=== PATIENT | male | born 1955 | race Caucasian/White ===

== ENCOUNTER → 2019-02-19 | Outpatient (CLI) | payer BC ==
[~2019-02-19] MED LIST: REGADENOSON 0.4 MG/5 ML SYRINGE IV ONE
--- NOTE | 2019-02-19 11:56 | NM ---
EXAMINATION TYPE: NM stress cardiolite complete DATE OF EXAM: 02/19/2019 COMPARISON: NONE HISTORY: TECHNIQUE: After the intravenous administration of 9.7 mCi Tc 99m Sestamibi - Rest images obtained 6 5 minutes post injection. The patient exercised using a HEIDI protocol and 1 minute prior to peak e xercise was injected with 25.1 mCi Tc 99m Sestamibi - Stress images obtained 35 minutes post injectio n. FINDINGS: Targeted heart rate was achieved during performance of the study. Review of stress and rest SPECT destinee ges demonstrates no distinct perfusion abnormality. Gated analysis shows normal wall motion with an estimated left ventricular ejection fraction of 65 %. IMPRESSION: No scintigraphic evidence for reversible ischemia
--- NOTE | 2019-02-19 20:11 | EST ---
EXERCISE STRESS AGE: 63 SEX: Male HT: 73" WT: 215 pounds PROTOCOL: Lexiscan Cardiolite STAGE: DURATION OF EXERCISE: HEART RATE REST: 66 BLOOD PRESSURE REST: 159/89 MAXIMUM HEART RATE ACHIEVED: 93 MAXIMUM BLOOD PRESSURE: 188/70 85% MPHR: 100% MPHR: METS: INDICATIONS: Chest pain, difficulty in breathing. CLINICAL INFORMATION: Baseline rhythm is a sinus mechanism, normal axis and intervals. Normal echocardiogram. Baseline blood pressure 159/89 mmHg. Patient received injection of Lexiscan. Electrocardiograph monitoring revealed no evidence of diagnostic ischemic ST deviation. Cardiolite was injected per protocol. CONCLUSION: 1. Non-diagnostic electrocardiograph stress testing. 2. Nuclear images will be reported separately. MMODL / IJN: [id number] /
== END | disposition home or self-care (01) ==
LOC: RADNMMAIN 07:57
PROVIDERS: ATTEND Family Medicine
DX: R07.89 Other chest pain (principal); R06.02 Shortness of breath
CPT/HCPCS: 93017; 78452; A9500

== ENCOUNTER → 2019-03-23 | Outpatient (CLI) | payer BC | END | disposition home or self-care (01) | LOC: LABWHC1 09:03 | PROVIDERS: ATTEND Nurse Practitioner Family | DX: R07.89 Other chest pain (principal) | CPT/HCPCS: 36415; 93005 ==

== ENCOUNTER → 2019-03-23 | Outpatient (CLI) | payer BC ==
--- NOTE | 2019-03-23 18:46 | ECHOF ---
Referral Reason:R07.89 Chest Pain, R06.02 Shortness of breath MEASUREMENTS -------- HEIGHT: 185.4 cm WEIGHT: 95.3 kg BP: 164/80 RVIDd: 2.5 cm (< 3.3) IVSd: 1.2 cm (0.6 - 1.1) LVIDd: 4.7 cm (3.9 - 5.3) LVPWd: 1.3 cm (0.6 - 1.1) IVSs: 1.7 cm LVIDs: 2.9 cm LVPWs: 1.4 cm LA Diam: 3.1 cm (2.7 - 3.8) LAESV Index (A-L): 29.10 ml/m Ao Diam: 3.6 cm (2.0 - 3.7) AV Cusp: 2.2 cm (1.5 - 2.6) MV EXCURSION: 20.043 mm (> 18.000) MV EF SLOPE: 83 mm/s (70 - 150) EPSS: 0.2 cm MV E Raghavendra: 0.91 m/s MV DecT: 222 ms MV A Raghavendra: 0.81 m/s MV E/A Ratio: 1.12 RAP: 5.00 mmHg RVSP: 37.34 mmHg FINDINGS -------- Sinus rhythm. This was a technically good study. The left ventricular size is normal. There is mild concentric left ventricular hypertrophy. Overa ll left ventricular systolic function is normal with, an EF between 60 - 65 %. The right ventricle is normal in size. LA is midly dilated 29-33ml/m2. The right atrium is normal in size. Interatrial and interventricular septum intact. The aortic valve is trileaflet and appears structurally normal. The mitral valve leaflets are mildly thickened. Mild mitral annular calcification present. Mild m itral regurgitation is present. Mild tricuspid regurgitation present. There is mild pulmonary hypertension. The right ventricular systolic pressure, as measured by Doppler, is 37.34mmHg. Trace/mild (physiologic) pulmonic regurgitation. The aortic root size is normal. Normal inferior vena cava with normal inspiratory collapse consistent with estimated right atrial pre ssure of 5 mmHg. There is no pericardial effusion. CONCLUSIONS -------- 1. Sinus rhythm. 2. This was a technically good study. 3. The left ventricular size is normal. 4. There is mild concentric left ventricular hypertrophy. 5. Overall left ventricular systolic function is normal with, an EF between 60 - 65 %. 6. The right ventricle is normal in size. 7. LA is midly dilated 29-33ml/m2. 8. The right atrium is normal in size. 9. Interatrial and interventricular septum intact. 10. The aortic valve is trileaflet and appears structurally normal. 11. The mitral valve leaflets are mildly thickened. 12. Mild mitral annular calcification present. 13. Mild mitral regurgitation is present. 14. Mild tricuspid regurgitation present. 15. There is mild pulmonary hypertension. 16. The right ventricular systolic pressure, as measured by Doppler, is 37.34mmHg. 17. Trace/mild (physiologic) pulmonic regurgitation. 18. The aortic root size is normal. 19. Normal inferior vena cava with normal inspiratory collapse consistent with estimated right atrial pressure of 5 mmHg. 20. There is no pericardial effusion. DEICER FINISHER: Violeta Kraft RDCS
== END | disposition home or self-care (01) ==
LOC: RADECHMAIN 08:30
PROVIDERS: ATTEND Family Medicine
DX: I08.1 Rheumatic disorders of both mitral and tricuspid valves (principal); I27.20 Pulmonary hypertension, unspecified; R07.89 Other chest pain
CPT/HCPCS: 93306

== ENCOUNTER → 2021-04-30 | Outpatient (CLI) | payer MEDICARE, BC ==
--- NOTE | 2021-04-30 13:14 | CT ---
EXAMINATION TYPE: CT abdomen pelvis wo/w con DATE OF EXAM: 04/30/2021 COMPARISON: None. HISTORY: Left lower quadrant pain. CT DLP: 1799.9 mGycm, Automated Exposure Control for Dose Reduction was Utilized. CONTRAST: CT scan of the abdomen and pelvis is performed with oral and without and with IV Contrast, patient in jected with 100 mL of Isovue M300 as requested by ordering physician. FINDINGS: LUNG BASES: No significant abnormality is appreciated. LIVER/GB: No significant abnormality is appreciated. PANCREAS: No significant abnormality is seen. SPLEEN: No significant abnormality is seen. ADRENALS: No significant abnormality is seen. KIDNEYS: Noncontrast images show no renal calculi bilaterally. Postcontrast images show symmetric cor tical medullary uptake and excretion without hydronephrosis seen bilaterally. There is 1.3 cm thin-wa lled cyst in the posterior aspect right kidney lower pole level axial series 10 image 44. BOWEL: Oral contrast reaches level of rectum. No suspicious small or large bowel dilatation. There is some mild to moderate wall thickening throughout portions of colon including distal one half of the transverse colon along with the left colon into the sigmoid rectal colon are present. No significant surrounding fat stranding or inflammatory change. Terminal ileum appears within normal limits. Append ix not seen and is suspected surgically absent. PROSTATE/SEMINAL VESICLES: No gross abnormality seen. LYMPH NODES: No greater than 1cm abdominal or pelvic lymph nodes are appreciated. OSSEOUS STRUCTURES: Mild to moderate disc space narrowing with vacuum disc phenomenon lumbosacral jefry ction. Facet arthropathy lower lumbar spine. OTHER: Mild to moderate calcified plaque of the aorta extends into branch vessels. IMPRESSION: Possible mild uncomplicated acute distal colitis, correlate clinically. Differential incl udes infectious and/or inflammatory etiologies.
== END | disposition home or self-care (01) ==
LOC: RADCTMAIN 10:56
PROVIDERS: ATTEND Family Medicine
DX: R10.32 Left lower quadrant pain (principal)
CPT/HCPCS: 82565; 84520; 74178; 36415; Q9967 ×2

== ENCOUNTER → 2021-05-22 | Outpatient (CLI) | payer MEDICARE, BC | END | disposition home or self-care (01) | LOC: LABWHC1 15:49 | PROVIDERS: ATTEND Family Medicine | DX: Z20.822 Contact with and (suspected) exposure to COVID-19 (principal); R05 Cough | CPT/HCPCS: U0003; C9803; U0005 ==

== ENCOUNTER 2021-05-25 09:47 | Emergency (ER) | payer MEDICARE, BC ==
[2021-05-25 09:56] VITALS: TEMP 98.4
--- NOTE | 2021-05-25 10:48 | XR ---
EXAMINATION TYPE: XR chest 2V DATE OF EXAM: 05/25/2021 COMPARISON: NONE HISTORY: Cough TECHNIQUE: Frontal and lateral views of the chest are obtained. FINDINGS: There is no focal air space opacity, pleural effusion, or pneumothorax seen. The cardiac silhouette size is within normal limits. There is a slight spinal curvature. Thoracic spondylosis is present. The osseous structures are intact. IMPRESSION: No acute cardiopulmonary process.
[2021-05-25] MEDS ORDERED: IPRATROPIUM-ALBUTEROL 3 ML NEB INHALATION STA (11:01)
[2021-05-25] MEDS ORDERED: methylPREDNISolone SOD SUCCI 125 MG/2 ML VIAL IM STA (11:02)
--- NOTE | 2021-05-25 11:05 | ED ---
General Adult HPI - General Chief complaint: Upper Respiratory Infection Stated complaint: head pressure, cough Time Seen by Provider: 05/25/21 10:06 Source: patient Mode of arrival: ambulatory Limitations: no limitations - History of Present Illness Initial comments: 65-year-old male with a past medical history of hyperlipidemia, hypertension presents to the emergency room for a chief complaint of cough. Patient states he has had a cough for 6 days now. States he also has congestion and right ear pain. Patient states that he called his doctor and his doctor would not see him until he had a negative Azul virus test. States that once he got this the power was out and he could not hold of his doctor and so that is why he is in the ER. States he just wants antibiotics and a cough medicine. Patient denies asthma or COPD. Denies smoking history. Denies shortness of breath.Patient has no other complaints at this time including shortness of breath, chest pain, abdominal pain, nausea or vomiting, headache, or visual changes. - Related Data Previous Rx's Medication Instructions Recorded Albuterol Inhaler [Ventolin Hfa 2 puff INHALATION RT-QID PRN #8 gm 05/25/21 Inhaler] Azithromycin [Zithromax Z-pack (6 250 mg PO DIRECTED #6 tab 05/25/21 tabs)] Jsni-Inpw-Beq 6.25-5-10Mg/5Ml 5 ml PO Q6H 3 Days #60 ml 05/25/21 [Phenergan VC with Codeine] predniSONE 50 mg PO DAILY #5 tablet 05/25/21 Allergies Allergy/AdvReac Type Severity Reaction Status Date / Time No Known Allergies Allergy Verified 05/25/21 09:50 Review of Systems ROS Statement: Those systems with pertinent positive or pertinent negative responses have been documented in the HPI. ROS Other: All systems not noted in ROS Statement are negative. Past Medical History Past Medical History: Hyperlipidemia, Hypertension Additional Past Medical History / Comment(s): chronic neck/back pain History of Any Multi-Drug Resistant Organisms: None Reported Past Surgical History: Orthopedic Surgery, Tonsillectomy Additional Past Surgical History / Comment(s): R wrist Past Psychological History: No Psychological Hx Reported Smoking Status: Former smoker Past Alcohol Use History: None Reported Past Drug Use History: None Reported General Exam Limitations: no limitations General appearance: alert, in no apparent distress Head exam: Present: atraumatic Eye exam: Present: normal appearance, PERRL, EOMI. Absent: scleral icterus, conjunctival injection ENT exam: Present: normal exam, normal oropharynx, mucous membranes moist, TM's normal bilaterally, normal external ear exam Neck exam: Present: normal inspection, full ROM. Absent: tenderness Respiratory exam: Present: wheezes. Absent: respiratory distress Cardiovascular Exam: Present: regular rate, normal rhythm, normal heart sounds GI/Abdominal exam: Present: soft, normal bowel sounds. Absent: distended, tenderness Course Vital Signs 05/25/21 05/25/21 09:50 11:27 Temperature 98.4 F Pulse Rate 73 70 Respiratory 18 22 Rate Blood Pressure 162/90 159/75 O2 Sat by Pulse 100 98 Oximetry Medical Decision Making - Medical Decision Making Vitals are stable. Patient is well appearing. He does have some wheezing. He does not want an IV. Coronavirus is negative. Chest x-ray shows no acute cardiopulmonary process. Patient has been sick for about a week now and strongly wants antibiotic. He will be prescribed azithromycin. He also wants cough syrup with codeine. We will start him on a steroid as well as an inhaler. He will follow up with his doctor. He will return for any worsening symptoms. - Lab Data Lab Results 05/25/21 Range/Units 10:33 Coronavirus (PCR) Not Detected (Not Detectd) Disposition Clinical Impression: Cough, Lab test negative for COVID-19 virus Disposition: HOME SELF-CARE Condition: Good Additional Instructions: Please take medication as directed. Please follow-up with your doctor in one to 2 days. If you have any worsening symptoms return to the emergency room. Prescriptions: Xvzw-Ojpi-Jjg 6.25-5-10Mg/5Ml [Phenergan VC with Codeine] 5 ml PO Q6H 3 Days #60 ml predniSONE 50 mg PO DAILY #5 tablet Albuterol Inhaler [Ventolin Hfa Inhaler] 2 puff INHALATION RT-QID PRN #8 gm PRN Reason: Shortness Of Breath Azithromycin [Zithromax Z-pack (6 tabs)] 250 mg PO DIRECTED #6 tab Is patient prescribed a controlled substance at d/c from ED?: No Referrals: Cielo Saavedra III, MD [Primary Care Provider] - 1-2 days Time of Disposition: 11:56
[2021-05-25 11:28] VITALS: BP 159/75
[2021-05-25 12:00] VITALS: PULSE 64
[2021-05-25 12:28] VITALS: RESP 20
== END 2021-05-25 12:23 | disposition home or self-care (01) ==
LOC: EC 09:47
DX: R05 Cough (principal); I10 Essential (primary) hypertension; E78.5 Hyperlipidemia, unspecified; Z90.89 Acquired absence of other organs; Z87.891 Personal history of nicotine dependence; Z20.822 Contact with and (suspected) exposure to COVID-19
CPT/HCPCS: 99283; 96372; 94640; 87635; 71046; J2930

== ENCOUNTER → 2022-04-10 | Outpatient (CLI) | payer MEDICARE ==
--- NOTE | 2022-04-10 12:05 | CA ---
Stress Echo Report Juvencio Lopez Age: 66 Gender: M : 1955 Exam Date: 04/10/2022 10:23 Exam Location: [facility] Ht (in): 73 Wt (lb): 215 Ordering Physician: Cielo Saavedra MD Referring Physician: Tommy Mackay MD ([id number]) Brusher: Xin Nick RDCS Technologist Procedure CPT: Indication: R06.02 SOB ICD-9 Codes: Rhythm: Patient History: Cardiac Medications: Medications in past 24 hours: Contrast: Stress Results Protocol: [place] Total dose(mL): Exercise Duration (min:sec): 9:[address] Depression (mm): Angina Score: Marie Score: METS: 10.3 Resting HR: 77 Resting BP: 137 / 57 Peak HR: 141 Peak BP: 220 / 88 Max Predicted HR: 154 92 % Max Predicted HR Target HR: 131 Double Product: [id number] Stress Summary: BP Response: Reason for Termination: Cardiac Symptoms: ECG Analysis Resting ECG: Normal sinus rhythm normal axis normal intervals Stress EC mm ST segment depression in inferolateral leads at peak exercise Arrhythmia: No significant cardiac arrhythmia Echo Analysis Resting Echo: Technically suboptimal normal LV size and function Peak Echo Analysis: Stress images are technically suboptimal no obvious exercise induced wall motion abnormalities MEASUREMENTS (Male/Female) Normal Values CONCLUSIONS Good exercise tolerance Mildly abnormal EKG part of the stress test Technically suboptimal stress echo images particularly in the stress images No obvious areas of stress-induced ischemia Dr. Fazal Luong MD (Electronically Signed) Final Date: 10 April 2022 12:04
== END | disposition home or self-care (01) ==
LOC: RADNMMAIN 09:51
PROVIDERS: ATTEND Family Medicine
DX: R94.39 Abnormal result of other cardiovascular function study (principal); R06.02 Shortness of breath; I10 Essential (primary) hypertension
CPT/HCPCS: 93351

== ENCOUNTER 2023-02-18 10:17 | Day surgery (SDC) | payer MEDICARE ==
[2023-02-14 10:06] VITALS: BMI 28.3
[~2023-02-18 10:17] MED LIST changes: +ALPRAZolam 0.25 MG TAB PO PRN; +ALPRAZolam 0.5 MG TAB PO PRN; +ASPIRIN 325 MG TAB PO ONE; +NITROGLYCERIN SL TABS 0.4 MG TAB SUBLINGUAL PRN; -REGADENOSON 0.4 MG/5 ML SYRINGE IV ONE; +SODIUM CHLORIDE 0.9% 1,000 ML in EMPTY BAG 1 BAG IV SCH
[2023-02-18] MEDS ORDERED: SODIUM CHLORIDE 0.9% 1,000 ML IV ONE (10:29)
[2023-02-18 10:52] LABS: Basophils % (A) 0 %; Eosinophils # (A) 0.1 k/uL (0-0.7); Eosinophils % (A) 2 %; HCT 43.9 % (39.0-53.0); HGB 14.7 gm/dL (13.0-17.5); Lymphocytes # (A) 1.7 k/uL (1.0-4.8); Lymphocytes % (A) 25 %; MCHC 33.6 g/dL (31.0-37.0); MCV 89.2 fL (80.0-100.0); Mean Platelet Volume 7.6; Monocytes # (A) 0.4 k/uL (0-1.0); Monocytes % (A) 6 %; Neutrophils # (A) 4.6 k/uL (1.3-7.7); Neutrophils % (A) 66 %; Platelet Count 214 k/uL (150-450); RBC 4.92 m/uL (4.30-5.90)
[2023-02-18 11:09] LABS: African American GFR (CKD) 88 (>60 ml/min/1.73 sqM); Anion Gap 8 mmol/L; Blood Urea Nitrogen 13 mg/dL (9-20); Calcium 8.8 mg/dL (8.4-10.2); Carbon Dioxide 27 mmol/L (22-30); Chloride 104 mmol/L (98-107); Glucose 97 mg/dL (74-99); Non-African American GFR(CKD) 76 (>60 ml/min/1.73 sqM); Potassium 4.3 mmol/L (3.5-5.1); Sodium 139 mmol/L (137-145)
[2023-02-18] MEDS ORDERED: VERAPAMIL 2.5 MG/ML 2 ML AMP ONE (11:38)
[2023-02-18] MEDS ORDERED: HEPARIN SODIUM 1,000 UN/ML (10ML VL) ONE (11:38)
[2023-02-18] MEDS ORDERED: MIDAZOLAM 2 MG/2 ML VIAL IV ONE ×2 (12:05→12:20)
[2023-02-18] MEDS ORDERED: LIDOCAINE 1% INJ 10MG/ML (5 ML VIAL-PF) SQ ONE (12:06)
[2023-02-18] MEDS ORDERED: VERAPAMIL SYRINGE (5 MG/10 ML) INTRAARTER ONE (12:07)
[2023-02-18] MEDS ORDERED: HEPARIN SODIUM 1,000 UN/ML (10ML VL) IV ONE (12:10)
[2023-02-18] MEDS ORDERED: IOPAMIDOL-370 100ML BTL INJ ONE (12:31)
[2023-02-18] MEDS ORDERED: RX INFO: IV CONTRAST WAS GIVEN 1 EACH MISC MISCELLANE PRN (12:38)
[2023-02-18] MEDS ORDERED: SODIUM CHLORIDE 0.9% 1,000 ML IV SCH (12:45)
--- NOTE | 2023-02-18 12:45 | P.PCN ---
Date of Procedure: 02/18/23 Operative Findings: CARDIAC CATHETERIZATION PERFORMING PHYSICIAN: Tommy Mackay MD, RPVI PROCEDURE PERFORMED: 1. Selective right and left coronary angiogram 2. iFR of left main coronary artery Ultrasound-guided access of the right radial artery INDICATION: Chest discomfort concerning for angina in this 67-year-old gentleman with carotid atherosclerosis as well as hypertension and dyslipidemia COMPLICATION: None APPROACH: Right radial artery LEVEL OF SEDATION: Moderate with a sedation length of 24 minutes PROCEDURE DESCRIPTION: After obtaining an informed consent, the patient was brought to cardiac quality assurance qa lab technician. Local anesthesia was performed using lidocaine subcutaneously. The right radial artery was cannulated using Seldinger technique, the guidewire passed easily, following that we advanced a 5-[place] sheath dilator assembly, the wire and dilator were removed and sheath was flushed. Following that, 2 mg of verapamil along with 5000 unit heparin were given. Selective right and left coronary angiogram using a 6-[place] JR4 and JL 3.5 catheters. Following that we did an iFR of the left main coronary artery The procedure was completed there was no complication. SELECTIVE CORONARY ANGIOGRAM: The right coronary artery: Large-caliber vessel and a dominant vessel. The RCA has mild disease only. Distally bifurcates into PDA and PLV branches and both appeared to be angiographically normal. Left main: Large-caliber vessel. The distal left main has eccentric lesion appeared to be in the range of 50-60%. We did perform iFR 0.87. The left circumflex: Large caliber vessel and nondominant dominant vessel. The proximal left circumflex appears to be normal and gives rises into an OM1 which has mild disease only before the circumflex continue in the AV groove as a medium caliber vessel The left anterior descending artery: Large-caliber vessel. The LAD has only mild disease. Gives rises into first and second diagonal branches both appeared to have mild disease only. iFR OF THE LM: Anticoagulation was initiated using heparin with continuous ACT monitoring. Subsequently after zeroing the Doppler wire and equalizing between the Doppler wire and guiding catheter which was a JL 3.5 guiding catheter with did wire the left main to the LAD after the left main was engaged. We did iFR and that came in to be at 0.87 and 0.89 and 0.89. The procedure was completed was no complication CONCLUSION: 1. Intermediate lesion involving the distal left main appeared to be eccentric and confirmed to be flow limiting by a Doppler wire 2. Mild disease involving the right coronary artery POSTPROCEDURE MANAGEMENT: Evaluate the patient for coronary artery bypass grafting
[2023-02-18 15:52] VITALS: RESP 16
[2023-02-18 16:45] VITALS: BP 123/72; PULSE 60
== END 2023-02-18 16:41 | disposition home or self-care (01) ==
LOC: CATHCVL 10:17
PROVIDERS: ATTEND Internal Medicine Interventional Cardiology
DX: I25.10 Atherosclerotic heart disease of native coronary artery without angina pectoris (principal); I08.0 Rheumatic disorders of both mitral and aortic valves; I65.23 Occlusion and stenosis of bilateral carotid arteries; I10 Essential (primary) hypertension; E78.5 Hyperlipidemia, unspecified; Z79.899 Other long term (current) drug therapy
CPT/HCPCS: 99152; 99153; 93454; 93799; 76937; 80048; 85025; C1887; C1769 ×2; C1894; J2250; J2001; J1644; Q9967

== ENCOUNTER → 2023-08-06 | Outpatient (CLI) | payer MEDICARE ==
--- NOTE | 2023-08-06 11:14 | US ---
EXAMINATION TYPE: US abdomen comp/pelvis limited DATE OF EXAM: 08/06/2023 COMPARISON: NONE CLINICAL INDICATION: Male, 67 years old with history of N28.9 DISORDER OF KIDNEY, UNSPECI K76.9 Liver diso; [address] done at [facility], one on the liver and another on the right kidney , no symptoms, patient just had bypass surgery at [facility] May 2023 EXAM MEASUREMENTS: Liver Length: 14.1 cm Gallbladder Wall: 0.3 cm CBD: 0.5 cm Spleen: 10.5 cm Right Kidney: 10.7 x 5.1 x 5.6 cm Left Kidney: 10.3 x 4.0 x 6.3 cm 1.2 x 1.3 Pancreas: portions seen appear wnl Liver: hyperechoic lesion seen within right lobe = 1.2 x 1.2 x 1.3cm may be a small hemangioma. Gallbladder: wnl CBD: wnl Spleen: wnl Right Kidney: inferior pole complex lesion, probable cyst seen on CT 2020 here, 2.1 x 1.4 x 1.6cm D ue to poor visualization this may not be a simple cyst. Short-term follow-up in 6 months can be perf ormed. Left Kidney: No hydronephrosis or masses seen Upper IVC: wnl Abd Aorta: wnl Bladder: wnl, not fully distended IMPRESSION: 1. Suspected small hemangioma within the liver. 2. Probable cyst right kidney. Follow-up ultrasound can be performed six months.
== END | disposition home or self-care (01) ==
LOC: RADUSWWP 09:35
PROVIDERS: ATTEND Family Medicine
DX: K76.9 Liver disease, unspecified (principal); N28.9 Disorder of kidney and ureter, unspecified; Z98.890 Other specified postprocedural states
CPT/HCPCS: 76700; 76857

== ENCOUNTER → 2024-02-19 | Outpatient (CLI) | payer MEDICARE ==
--- NOTE | 2024-02-19 14:41 | US ---
EXAMINATION TYPE: US kidneys/renal and bladder DATE OF EXAM: 02/19/2024 COMPARISON: 08/06/2023 CLINICAL INDICATION: Male, 68 years old with history of N28.1 CYST OF KIDNEY; Patient denies any sign s or symptoms at this time EXAM MEASUREMENTS: Right Kidney: 9.6 x 5.5 x 5.5 cm Left Kidney: 10.1 x 5.5 x 4.5 cm Post Void Residual Volume: NA mL Right Kidney: wnl; cyst not seen on this exam Left Kidney: wnl Bladder: wnl Bilateral Jets seen: Yes Normal Post Void Residual: NA There is no evidence for hydronephrosis at this point in time. No nephrolithiasis is seen. No coretta s are identified. The urinary bladder is anechoic. Bilateral ureteral jets are seen. IMPRESSION: No significant abnormality seen. No solid renal masses, renal cysts, renal calcifications or hydronep hrosis.
== END | disposition home or self-care (01) ==
LOC: RADUSWWP 14:13
PROVIDERS: ATTEND Family Medicine
DX: N28.1 Cyst of kidney, acquired (principal)
CPT/HCPCS: 76770